=== PATIENT | male | born 1950 | race African-American/Black ===

== ENCOUNTER 2020-03-11 15:33 | Inpatient (IN) ==
[2020-03-11 15:51] VITALS: BMI 26.2
--- NOTE | 2020-03-11 16:05 | DR.GENAD ---
HPI Time Seen Time Seen by Provider: 03/11/20 16:05 PCP Primary Care Physician: JOAQUIN Complaint/Symptoms Chief Complaint Doctors Comments: A 69 y/o male presenting with nausea, onset today. He has vomited once. He had 2 days of abdominal pain but that has resolved today. He had tarry stools yesterday. He had been at [facility] ED yesterday and day before yesterday. He was evaluated and d/c with Zofran and Pepcid. He had associated fever and chills but no SOB or cough. Chief Complaint:: PT. BEGAN HAVING ABDOMINAL PAIN LAST MONDAY. PT. HAS BEEN SEEN IN [facility] THE PAST 2 DAYS. PT. WAS DIAGNOSED WITH STOMACH ULCERS AND ALSO HAD STOOL STUDIES DONE DUE TO HIS STOOL BEING DARK. PT. HAS HAD INCREASED WEAKNESS. PT. C/O NAUSEA. DENIES PAIN. PT. HAS HAD FEVER/CHILLS. PT. WAS TESTED FOR COVID 19 TODAY IN [place]. COVID-19 Coronavirus risk:travel/contact w/high risk person: No Has patient experienced Coronavirus symptoms: Yes Coronavirus symptoms experienced: Fever Nurses notes reviewed Nurses Notes Review: Yes Source History Provided: Patient and Family Member Mode of Arrival Mode of Arrival: Wheelchair Timing Onset of Chief Complaint: 03/05/20 PMH PMH Past Medical History: Yes Past Medical History: Hypertension Past Surgical History: No Surgical History: No History Family History History of Family Medical Conditions: No Social History Does patient currently use any type of tobacco product: No Have you used tobacco products in the last 12 months: No Type of Tobacco Use: None Does any household member use tobacco: No Alcohol Use: None Do you use any recreational Drugs:: No Lives With: Spouse Lives Where: Home Travel Risk Coronavirus risk:travel/contact w/high risk person: No Has patient experienced Coronavirus symptoms: Yes Coronavirus symptoms experienced: Fever Infectious screening In the last 2 months have you had wt loss of >10#?: NO Have you had fever, night sweats or hemotysis?: No Have you traveled outside the country in the last 6 months?: No Isolation: Droplet ROS Review of Systems Constitutional: Fever Eyes: No Symptoms Reported ENTM: No Symptoms Reported Respiratoy: No Symptoms Reported Cardiovascular: No Symptoms Reported Gastrointestinal/Abdominal: Abdominal Pain, Nausea and Vomiting Genitourinary: No Symptoms Reported Neurological: No Symptoms Reported Musculoskeletal: No Symptoms Reported Integumentary: No Symptoms Reported Hematologic/Lymphatic: No Symptoms Reported Endocrine: No Symptoms Reported Psychiatric: No Symptoms Reported PE Vital Signs Vitals: Temperature 97.6 F Pulse Rate 57 Respiratory Rate 21 Blood Pressure 140/72 O2 Sat by Pulse Oximetry 94 General Limitations: No Limitations General Appearance: Alert and Other (He is ill looking) Head Head Exam: Normal Inspection, Atraumatic and Normocephalic Eyes Eye exam: Normal Appearance and EOMI ENT ENT Exam: Normal Exam, Normal Oropharynx, Normal External Ear Exam and Mucous Membranes Moist Neck Neck Exam: Normal Inspection, Full ROM and Trachea Midline Chest Chest Inspection: Normal Inspection and Symmetric Chest Wall Rise Respiratory Respiratory Exam: Normal Lung Sounds Bilat Cardiovascular Cardiovascular Exam: Normal Rhythm, Normal Heart Sounds, +S1 and +S2 Abdominal Exam Abdominal Exam: Normal Inspection, Normal Bowel Sounds and Soft; negative Diste ntion, Tenderness, Guarding, Rebound, Rigidity, Dimnished Bowel Sounds, Hyperactive Bowel Sounds, Hypoactive Bowel Sounds, Organomegaly, Trauma, Incision, Ascites, Mass, Bruit, Pulsatile Mass and Hernia Extremities Extremities Exam: Normal Inspection and Full ROM Back Back Exam: Normal Inspection and Full ROM Neurologic Neurological Exam: Alert and Oriented X3 Psychiatric Psychiatric Exam: Normal Mood and Agitated Skin Skin Exam: Dry and Normal Color COURSE Reevaluation 1st: Improved Education/Counseling Education/Counseling: Patient, Family, Education and Counseling Educated On: Treatment, Diagnosis, Prognosis and Needs for Follow Up ROR Labs Reviewed Laboratory Results Reviewed?: Yes Result Diagrams: 03/11/20 16:36 03/11/20 16:36 Laboratory: WBC 6.0 X10^3/uL (3.6-10.0) 03/11/20 16:36 RBC 6.07 X10^6/uL (4.7-6.0) H 03/11/20 16:36 Hgb 16.1 g/dL (13.5-18.0) 03/11/20 16:36 Hct 48.4 % (42.0-54.0) 03/11/20 16:36 MCV 79.6 fL (80.0-100.0) L 03/11/20 16:36 MCH 26.6 pg (27.0-34.0) L 03/11/20 16:36 MCHC 33.4 g/dL (33.0-35.0) 03/11/20 16:36 RDW 14.1 % (11.6-16.5) 03/11/20 16:36 Plt Count 105 X10^3/uL (150.0-450.0) L 03/11/20 16:36 MPV 9.0 fL (7.4-11.0) 03/11/20 16:36 Neut % (Auto) 78.1 % (42.0-75.0) H 03/11/20 16:36 Lymph % (Auto) 9.7 % (21.0-51.0) L 03/11/20 16:36 [place] % (Auto) 11.6 % (0.0-13.0) 03/11/20 16:36 Eos % (Auto) 0.1 % (0.9-2.9) L 03/11/20 16:36 Baso % (Auto) 0.5 % (0.2-1.0) 03/11/20 16:36 Neut # (Auto) 4.7 x10^3/uL (2.2-4.8) 03/11/20 16:36 Lymph # (Auto) 0.6 X10^3/uL (1.3-2.9) L 03/11/20 16:36 [place] # (Auto) 0.7 x10^3/uL (0.3-0.8) 03/11/20 16:36 Eos # (Auto) 0.0 x10^3/uL (0.0-0.2) 03/11/20 16:36 Baso # (Auto) 0.0 X10^3/uL (0.0-0.1) 03/11/20 16:36 Absolute Nucleated RBC 0.0 /100WBC 03/11/20 16:36 Sodium 131 mmol/L (136-145) L 03/11/20 16:36 Corrected Sodium 131 mmol/L (136-145) L 03/11/20 16:36 Potassium 4.5 mmol/L (3.5-5.1) 03/11/20 16:36 Chloride 96 mmol/L (98-107) L 03/11/20 16:36 Carbon Dioxide 32.0 mmol/L (21-32) 03/11/20 16:36 BUN 19 mg/dL (7-18) H 03/11/20 16:36 Creatinine 1.67 mg/dL (0.70-1.30) H 03/11/20 16:36 Est GFR (MDRD) Af Amer 53 (>60) L 03/11/20 16:36 Est GFR (MDRD) Non-Af 44 (>60) L 03/11/20 16:36 Glucose 116 mg/dL (65-99) H 03/11/20 16:36 Lactic Acid 0.9 mmol/L (0.4-2.0) 03/11/20 17:38 Calcium 8.5 mg/dL (8.5-10.1) 03/11/20 16:36 Corrected Calcium TNP 03/11/20 16:36 Total Bilirubin 0.50 mg/dL (0.2-1.0) 03/11/20 16:36 AST 46 Units/L (15-37) H 03/11/20 16:36 ALT 47 Units/L (12-78) 03/11/20 16:36 Alkaline Phosphatase 76 Units/L (46-116) 03/11/20 16:36 Total Protein 8.5 g/dL (6.4-8.2) H 03/11/20 16:36 Albumin 3.5 g/dL (3.4-5.0) 03/11/20 16:36 Globulin 5.0 g/dL (2.5-4.5) H 03/11/20 16:36 Albumin/Globulin Ratio 0.7 Ratio (1.1-2.1) L 03/11/20 16:36 Opioid Opioid Risk Tool Age (Mehdi box if 16-45): No History of Preadolescent Sexual Abuse: No Total: 0 Total Score Risk Category: Low Risk Copyright: Kj CAREY predicting aberrant behaviors Diagnosis Discharge Problem: Tarry stool Pneumonia Qualifiers: Pneumonia type: due to unspecified organism Laterality: bilateral Lung location: unspecified part of lung Qualified Code(s): J18.9 - Pneumonia, unspecified organism Abdominal pain Qualifiers: Abdominal location: epigastric Qualified Code(s): R10.13 - Epigastric pain Nausea & vomiting Qualifiers: Vomiting type: unspecified Vomiting Intractability: non-intractable Qualified Code(s): R11.2 - Nausea with vomiting, unspecified HTN (hypertension) Qualifiers: Hypertension type: essential hypertension Qualified Code(s): I10 - Essential (primary) hypertension ADDITIONAL NOTES Additional Notes Additional Notes: Name: ISHMAEL VIVAS : 1950 Sex: M Location: ER Order Number(s): [id number] Procedure(s):CHEST, 1 VIEW Ordering Physician: CHELSEA SURESH Primary Care: JOAQUIN SPAULDING V Service Date: 03/11/20 Service Time: 1618 HISTORY SOB STUDY CHEST, 1 VIEW COMPARISON 08/18/2019 FINDINGS The heart is normal. The pulmonary vessels are normal. There are some hazy bibasilar and left upper lobe opacities. No effusion is seen. IMPRESSION Hazy subsegmental bibasilar and left upper lobe opacities which could represent early multisegmental bronchopneumonia. Recommend short-term follow-up. Electronically signed by: GRACE MELLO (Mar 11, 2020 16:57:29) Name: ISHMAEL VIVAS : 1950 Sex: M Location: ER Order Number(s): [id number] Procedure(s):KUB Ordering Physician: CHELSEA SURESH Primary Care: CHELLYJACIELJOAQUIN Alexsander Service Date: 03/11/20 Service Time: 1738 HISTORY abd pain, nausea STUDY KUB x-ray abdomen 1 view COMPARISON None FINDINGS Large lateral osteophytes are seen in the lumbar spine with mild scoliosis. No abnormalities are seen with the bowel gas pattern. No constipation is seen. Likely tiny phleboliths are seen in the pelvis. Mild arthritic changes in the right hip. IMPRESSION No abnormalities are seen with the bowel gas pattern. Electronically signed by: Robert Rodrigues (Mar 11, 2020 18:59:22)
[2020-03-11] MEDS ORDERED: NS 1000 ML 1,000 ML IV ONE (16:18)
[2020-03-11] MEDS ORDERED: ZOFRAN INJ 4 MG VIAL IVP ONE (16:18)
[2020-03-11] MEDS ORDERED: NS 1000 ML 1,000 ML ONE (16:22)
[2020-03-11] MEDS ORDERED: ZOFRAN INJ 4 MG VIAL ONE (16:22)
[2020-03-11 16:52] LABS: BASOPHILS % (AUTO) 0.5 % (0.2-1.0); EOSINOPHILS % (AUTO) 0.1 % (0.9-2.9); HEMATOCRIT 48.4 % (42.0-54.0); HEMOGLOBIN 16.1 g/dL (13.5-18.0); LYMPHOCYTES # (AUTO) 0.6 X10^3/uL (1.3-2.9); LYMPHOCYTES % (AUTO) 9.7 % (21.0-51.0); MEAN CORPUSCULAR HEMOGLOBIN 26.6 pg (27.0-34.0); MEAN CORPUSCULAR HGB CONC 33.4 g/dL (33.0-35.0); MEAN CORPUSCULAR VOLUME 79.6 fL (80.0-100.0); MONOCYTES # (AUTO) 0.7 x10^3/uL (0.3-0.8); MONOCYTES % (AUTO) 11.6 % (0.0-13.0); NEUTROPHILS # (AUTO) 4.7 x10^3/uL (2.2-4.8); NEUTROPHILS % (AUTO) 78.1 % (42.0-75.0); PLATELET COUNT 105 X10^3/uL (150.0-450.0); RED BLOOD COUNT 6.07 X10^6/uL (4.7-6.0); RED CELL DISTRIBUTION WIDTH 14.1 % (11.6-16.5)
--- NOTE | 2020-03-11 16:58 | RAD ---
HISTORYSOBSTUDYCHEST, 1 [id number]/10/2019FINDINGSThe heart is normal. The pulmonary vessels are normal. There are some hazy bibasilar and left upper lobe opacities. No effusion is seen.IMPRESSIONHazy subsegmental bibasilar and left upper lobe opacities which could represent early multisegmental bronchopneumonia. Recommend short-term follow-up.Electronically signed by: GRACE MELLO (Mar 11, 2020 16:57:29)
[2020-03-11 17:04] LABS: ALANINE AMINOTRANSFERASE 47 Units/L (12-78); ALBUMIN 3.5 g/dL (3.4-5.0); ALKALINE PHOSPHATASE 76 Units/L (46-116); ASPARTATE AMINO TRANSFERASE 46 Units/L (15-37); BLOOD UREA NITROGEN 19 mg/dL (7-18); CALCIUM 8.5 mg/dL (8.5-10.1); CHLORIDE 96 mmol/L (98-107); COR NA(FOR HYPERGLY) 131 mmol/L (136-145); CREATININE 1.67 mg/dL (0.70-1.30); SODIUM 131 mmol/L (136-145); TOTAL PROTEIN 8.5 g/dL (6.4-8.2); eGFR NON BLACK RACES 44 (>60)
[2020-03-11] MEDS ORDERED: LEVAQUIN PREMIX IV 500 MG 500 MG/100 ML BAG IV ONE ×2 (17:14→17:37)
--- NOTE | 2020-03-11 19:00 | RAD ---
HISTORYabd pain, nauseaSTUDYKUB x-ray abdomen 1 viewCOMPARISONNoneFINDINGSLarge lateral osteophytes are seen in the lumbar spine with mild scoliosis. No abnormalities are seen with the bowel gas pattern. No constipation is seen. Likely tiny phleboliths are seen in the pelvis. Mild arthritic changes in the right hip.IMPRESSIONNo abnormalities are seen with the bowel gas pattern.Electronically signed by: Robert Rodrigues (Mar 11, 2020 18:59:22)
[2020-03-11] MEDS ORDERED: NS 1/2 1000 ML IV 1,000 ML IV SCH (20:00)
[2020-03-11] MEDS ORDERED: ZOFRAN TAB 4 MG PO PRN (20:17)
[2020-03-11] MEDS ORDERED: VENTOLIN or PROAIR HFA ONE (20:51)
[2020-03-11] MEDS ORDERED: ROBITUSSIN DM PO SCH (21:00)
[2020-03-11] MEDS: VENTOLIN or PROAIR HFA IN PRN (21:00)
[2020-03-11] MEDS ORDERED: NS 1/2 1000 ML IV 1,000 ML IV ONE (21:49)
[2020-03-11] MEDS: NS 1/2 1000 ML IV 1,000 ML IV SCH (21:58)
[2020-03-11] MEDS: MAXIPIME VIAL 1 GRAM 1 G in NS 50 ML IV + SPIKE MINIBAG* 50 ML IV SCH (21:58)
[2020-03-11] MEDS: ZESTRIL TAB 10 MG PO SCH (21:58)
[2020-03-11] MEDS: ROBITUSSIN DM PO SCH (21:58)
[2020-03-11] MEDS ORDERED: MAXIPIME VIAL 1 GRAM 1 G in NS 50 ML IV + SPIKE MINIBAG* 50 ML IV SCH (22:00)
[2020-03-12] MEDS: MAXIPIME VIAL 1 GRAM 1 G in NS 50 ML IV + SPIKE MINIBAG* 50 ML IV SCH ×3 (05:12→21:09)
[2020-03-12 05:15] LABS: BASOPHILS % (AUTO) 0.5 % (0.2-1.0); EOSINOPHILS % (AUTO) 0.1 % (0.9-2.9); HEMATOCRIT 47.8 % (42.0-54.0); HEMOGLOBIN 16.1 g/dL (13.5-18.0); LYMPHOCYTES # (AUTO) 0.6 X10^3/uL (1.3-2.9); LYMPHOCYTES % (AUTO) 10.1 % (21.0-51.0); MEAN CORPUSCULAR HEMOGLOBIN 26.8 pg (27.0-34.0); MEAN CORPUSCULAR HGB CONC 33.8 g/dL (33.0-35.0); MEAN CORPUSCULAR VOLUME 79.4 fL (80.0-100.0); MEAN PLATELET VOLUME 8.7 fL (7.4-11.0); MONOCYTES # (AUTO) 0.5 x10^3/uL (0.3-0.8); MONOCYTES % (AUTO) 9.6 % (0.0-13.0); NEUTROPHILS # (AUTO) 4.4 x10^3/uL (2.2-4.8); NEUTROPHILS % (AUTO) 79.7 % (42.0-75.0); PLATELET COUNT 101 X10^3/uL (150.0-450.0); RED BLOOD COUNT 6.02 X10^6/uL (4.7-6.0); RED CELL DISTRIBUTION WIDTH 13.8 % (11.6-16.5); WHITE BLOOD COUNT 5.5 X10^3/uL (3.6-10.0)
[2020-03-12 05:20] LABS: ABG BASE EXCESS 1.7 mmol/L (-2.0-2.0); ABG HCO3 25.8 mmol/L (22-26)
[2020-03-12 05:33] LABS: ALANINE AMINOTRANSFERASE 42 Units/L (12-78); ALBUMIN 3.1 g/dL (3.4-5.0); ALKALINE PHOSPHATASE 70 Units/L (46-116); ASPARTATE AMINO TRANSFERASE 32 Units/L (15-37); BLOOD UREA NITROGEN 15 mg/dL (7-18); CALCIUM 7.8 mg/dL (8.5-10.1); CARBON DIOXIDE 30.6 mmol/L (21-32); CHLORIDE 97 mmol/L (98-107); COR CA(FOR HYPOALB) 8.5 mg/dL (8.5-10.1); CREATININE 1.43 mg/dL (0.70-1.30); SODIUM 133 mmol/L (136-145); eGFR NON BLACK RACES 52 (>60)
--- NOTE | 2020-03-12 06:04 | RAD ---
HISTORYShortness of breathSTUDYCHEST, 1 UQMIAMBKJQOAGG06/03/2020FINDINGSThe heart is within normal limits in size. The irene are normal. Subtle peripheral infiltrates are present in the right lower lobe and peripherally in the left upper lobe unchanged from the prior examination. The left lung base is now clear. No pleural effusions are identified. Bony thorax is unremarkable.IMPRESSIONPeripheral right lower and left upper lobe infiltrates unchangedLeft lung base now clearElectronically signed by: ISHMAEL WINTERS (Mar 12, 2020 06:03:35)
[2020-03-12] MEDS ORDERED: VSL#3 PO SCH (09:00)
[2020-03-12] MEDS ORDERED: LEVAQUIN PREMIX IV 750 MG 750 MG/150 ML BAG IV SCH (09:00)
[2020-03-12] MEDS: VENTOLIN or PROAIR HFA IN PRN (09:25)
[2020-03-12] MEDS: NS 1/2 1000 ML IV 1,000 ML IV SCH (10:00)
[2020-03-12] MEDS: ROBITUSSIN DM PO SCH ×4 (10:00→20:44)
[2020-03-12] MEDS: ZESTRIL TAB 10 MG PO SCH ×2 (10:00→20:45)
[2020-03-12] MEDS: NORVASC TAB 10 MG PO SCH (10:00)
[2020-03-12] MEDS: LEVAQUIN PREMIX IV 750 MG 750 MG/150 ML BAG IV SCH (10:00)
[2020-03-12] MEDS: PEPCID TAB 20 MG PO SCH (10:00)
[2020-03-12] MEDS: VSL#3 PO SCH (10:00)
[2020-03-12] MEDS ORDERED: NS 1/2 1000 ML IV 1,000 ML IV ONE (10:10)
[2020-03-12] MEDS ORDERED: REMDESIVIR (INVESTIGATIONAL DRUG GS-5734) 200 MG in NS 250 ML IV 250 ML IV ONE (10:15)
[2020-03-12] MEDS: LOVENOX INJ 40 MG SYR SC SCH (13:30)
[2020-03-12] MEDS: TYLENOL 325 MG TAB PO PRN (21:10)
[2020-03-13] MEDS: NS 1/2 1000 ML IV 1,000 ML IV SCH ×3 (00:19→19:08)
[2020-03-13] MEDS ORDERED: NS 1/2 1000 ML IV 1,000 ML IV ONE ×2 (02:19→19:05)
[2020-03-13] MEDS: MAXIPIME VIAL 1 GRAM 1 G in NS 50 ML IV + SPIKE MINIBAG* 50 ML IV SCH ×3 (05:01→21:11)
[2020-03-13] MEDS: TYLENOL 325 MG TAB PO PRN ×2 (05:13→20:04)
[2020-03-13 05:17] LABS: BASOPHILS % (AUTO) 0.4 % (0.2-1.0); HEMATOCRIT 45.4 % (42.0-54.0); HEMOGLOBIN 15.4 g/dL (13.5-18.0); LYMPHOCYTES # (AUTO) 0.4 X10^3/uL (1.3-2.9); LYMPHOCYTES % (AUTO) 6.9 % (21.0-51.0); MEAN CORPUSCULAR VOLUME 79.5 fL (80.0-100.0); MEAN PLATELET VOLUME 8.7 fL (7.4-11.0); MONOCYTES # (AUTO) 0.8 x10^3/uL (0.3-0.8); MONOCYTES % (AUTO) 12.2 % (0.0-13.0); NEUTROPHILS # (AUTO) 5.1 x10^3/uL (2.2-4.8); NEUTROPHILS % (AUTO) 80.5 % (42.0-75.0); PLATELET COUNT 101 X10^3/uL (150.0-450.0); RED BLOOD COUNT 5.71 X10^6/uL (4.7-6.0); RED CELL DISTRIBUTION WIDTH 14.1 % (11.6-16.5); WHITE BLOOD COUNT 6.4 X10^3/uL (3.6-10.0)
[2020-03-13 05:27] LABS: ALANINE AMINOTRANSFERASE 64 Units/L (12-78); ALBUMIN 2.9 g/dL (3.4-5.0); ALKALINE PHOSPHATASE 77 Units/L (46-116); ASPARTATE AMINO TRANSFERASE 53 Units/L (15-37); BLOOD UREA NITROGEN 14 mg/dL (7-18); CALCIUM 8.1 mg/dL (8.5-10.1); CARBON DIOXIDE 27.1 mmol/L (21-32); CHLORIDE 96 mmol/L (98-107); CREATININE 1.51 mg/dL (0.70-1.30); LACTATE DEHYDROGENASE 272 Units/L (85-227); SODIUM 131 mmol/L (136-145); TOTAL PROTEIN 7.7 g/dL (6.4-8.2); eGFR NON BLACK RACES 49 (>60)
[2020-03-13 05:31] LABS: ABG ALLEN TEST POS; ABG BASE EXCESS 1.3 mmol/L (-2.0-2.0); ABG HCO3 24.9 mmol/L (22-26)
[2020-03-13 06:07] LABS: GIANT PLATELET FEW; PLATELET MORPHOLOGY COMMENT ABNORMAL (NORMAL)
--- NOTE | 2020-03-13 06:26 | RAD ---
HISTORYSOBSTUDYCHEST, 1 CDJABLFAMNUIJY56/04/2020FINDINGSThe trachea is midline. The cardiac silhouette is unremarkable. Patchy infiltrates within the right lower lobe, left upper and left lower lobes. No pleural effusion or pneumothorax. The bony thorax is unremarkable.IMPRESSIONPatchy infiltrates within the right lower lobe, left upper and left lower lobes similar to previous 03/12/2020Electronically signed by: Ramon Lechuga (Mar 13, 2020 06:25:11)
[2020-03-13] MEDS: LEVAQUIN PREMIX IV 750 MG 750 MG/150 ML BAG IV SCH (08:37)
[2020-03-13] MEDS: PEPCID TAB 20 MG PO SCH (09:07)
[2020-03-13] MEDS: NORVASC TAB 10 MG PO SCH (09:07)
[2020-03-13] MEDS: ROBITUSSIN DM PO SCH ×4 (09:08→20:04)
[2020-03-13] MEDS: VSL#3 PO SCH (09:08)
[2020-03-13] MEDS: ZESTRIL TAB 10 MG PO SCH ×2 (09:08→20:04)
[2020-03-13] MEDS: LOVENOX INJ 40 MG SYR SC SCH (09:09)
[2020-03-13] MEDS: REMDESIVIR (INVESTIGATIONAL DRUG GS-5734) 100 MG in NS 250 ML IV 250 ML IV SCH (09:10)
[2020-03-13] MEDS ORDERED: ACTEMRA 400 MG in NS 100 ML IV 80 ML IV NR ×2 (10:15→19:00)
[2020-03-13] MEDS ORDERED: CANDIDA ALBICANS SKIN TEST ID ONE (10:24)
[2020-03-13] MEDS ORDERED: SOLU-Medrol 125 MG VIAL IVP ONE (10:24)
[2020-03-13] MEDS ORDERED: APLISOL ID ONE (10:27)
[2020-03-13] MEDS: SOLU-Medrol 40 MG VIAL IVP SCH ×2 (14:05→21:11)
[2020-03-13] MEDS: VENTOLIN or PROAIR HFA IN PRN (17:20)
[2020-03-13] MEDS ORDERED: NS 100 ML IV 100 ML IV ONE (18:39)
[2020-03-14] MEDS ORDERED: NS 1/2 1000 ML IV 1,000 ML IV ONE ×2 (04:34→19:53)
[2020-03-14] MEDS: NS 1/2 1000 ML IV 1,000 ML IV SCH ×2 (04:36→20:39)
[2020-03-14] MEDS: SOLU-Medrol 40 MG VIAL IVP SCH ×3 (05:01→21:02)
[2020-03-14] MEDS: MAXIPIME VIAL 1 GRAM 1 G in NS 50 ML IV + SPIKE MINIBAG* 50 ML IV SCH ×3 (05:02→21:01)
[2020-03-14 05:29] LABS: HEMOGLOBIN 15.8 g/dL (13.5-18.0); LYMPHOCYTES # (AUTO) 0.3 X10^3/uL (1.3-2.9); LYMPHOCYTES % (AUTO) 10.3 % (21.0-51.0); MEAN CORPUSCULAR HEMOGLOBIN 26.9 pg (27.0-34.0); MEAN CORPUSCULAR HGB CONC 33.5 g/dL (33.0-35.0); MEAN CORPUSCULAR VOLUME 80.2 fL (80.0-100.0); MEAN PLATELET VOLUME 9.1 fL (7.4-11.0); MONOCYTES # (AUTO) 0.3 x10^3/uL (0.3-0.8); MONOCYTES % (AUTO) 9.2 % (0.0-13.0); NEUTROPHILS # (AUTO) 2.4 x10^3/uL (2.2-4.8); NEUTROPHILS % (AUTO) 79.5 % (42.0-75.0); PLATELET COUNT 121 X10^3/uL (150.0-450.0); RED BLOOD COUNT 5.87 X10^6/uL (4.7-6.0); WHITE BLOOD COUNT 3.1 X10^3/uL (3.6-10.0)
[2020-03-14 05:36] LABS: ALANINE AMINOTRANSFERASE 75 Units/L (12-78); ALBUMIN 2.8 g/dL (3.4-5.0); ALKALINE PHOSPHATASE 74 Units/L (46-116); ASPARTATE AMINO TRANSFERASE 45 Units/L (15-37); BLOOD UREA NITROGEN 16 mg/dL (7-18); CALCIUM 8.4 mg/dL (8.5-10.1); CHLORIDE 100 mmol/L (98-107); COR CA(FOR HYPOALB) 9.4 mg/dL (8.5-10.1); COR NA(FOR HYPERGLY) 135 mmol/L (136-145); LACTATE DEHYDROGENASE 237 Units/L (85-227); SODIUM 134 mmol/L (136-145); TOTAL PROTEIN 7.6 g/dL (6.4-8.2); eGFR NON BLACK RACES > 60 (>60)
[2020-03-14 05:53] LABS: ABG HCO3 26.5 mmol/L (22-26)
[2020-03-14 05:54] LABS: ABG ALLEN TEST POS
[2020-03-14 06:22] LABS: BAND NEUTROPHILS % 2 % (0-10); PLATELET MORPHOLOGY COMMENT NORMAL (NORMAL)
--- NOTE | 2020-03-14 07:02 | RAD ---
HISTORYSOB hypertensionSTUDYAP yvlunAKPJGDZQJK35/05/2020FINDINGSContinued upper normal heart size with persistent bilateral areas of patchy pulmonary infiltrate, primarily involving the lower lungs. No discrete mass, pulmonary edema, pneumothorax or large pleural effusion is evident. Pulmonary volumes are moderately reduced on the c urrent examination.IMPRESSIONConsidering technical difference, no definite change. Persistent infiltr ates consistent with multifocal pneumonia.Electronically signed by: DRE MAHER (Mar 14, 2020 07:0 1:14)
[2020-03-14] MEDS: VENTOLIN or PROAIR HFA IN PRN ×4 (08:25→20:55)
[2020-03-14] MEDS: LEVAQUIN PREMIX IV 750 MG 750 MG/150 ML BAG IV SCH (09:03)
[2020-03-14] MEDS: NORVASC TAB 10 MG PO SCH (09:04)
[2020-03-14] MEDS: LOVENOX INJ 40 MG SYR SC SCH (09:04)
[2020-03-14] MEDS: VSL#3 PO SCH (09:05)
[2020-03-14] MEDS: PEPCID TAB 20 MG PO SCH (09:05)
[2020-03-14] MEDS: ROBITUSSIN DM PO SCH ×4 (09:05→20:40)
[2020-03-14] MEDS: ZESTRIL TAB 10 MG PO SCH ×2 (09:05→20:40)
[2020-03-14] MEDS: REMDESIVIR (INVESTIGATIONAL DRUG GS-5734) 100 MG in NS 250 ML IV 250 ML IV SCH (10:45)
[2020-03-14] MEDS ORDERED: MAXIPIME VIAL 1 GRAM ONE (19:55)
[2020-03-14] MEDS ORDERED: NS 100 ML IV + SPIKE MINIBAG* 100 ML IV ONE (19:56)
[2020-03-15 05:29] LABS: ALANINE AMINOTRANSFERASE 73 Units/L (12-78); ALBUMIN 2.7 g/dL (3.4-5.0); ALKALINE PHOSPHATASE 68 Units/L (46-116); ASPARTATE AMINO TRANSFERASE 38 Units/L (15-37); BLOOD UREA NITROGEN 21 mg/dL (7-18); CALCIUM 8.2 mg/dL (8.5-10.1); CARBON DIOXIDE 27.9 mmol/L (21-32); CHLORIDE 101 mmol/L (98-107); COR CA(FOR HYPOALB) 9.2 mg/dL (8.5-10.1); COR NA(FOR HYPERGLY) 135 mmol/L (136-145); CREATININE 1.11 mg/dL (0.70-1.30); LACTATE DEHYDROGENASE 255 Units/L (85-227); SODIUM 134 mmol/L (136-145); TOTAL PROTEIN 7.1 g/dL (6.4-8.2); eGFR NON BLACK RACES > 60 (>60)
[2020-03-15 05:31] LABS: BASOPHILS % (AUTO) 0 % (0.2-1.0); EOSINOPHILS % (AUTO) 0.1 % (0.9-2.9); HEMATOCRIT 46.9 % (42.0-54.0); HEMOGLOBIN 15.8 g/dL (13.5-18.0); LYMPHOCYTES # (AUTO) 0.4 X10^3/uL (1.3-2.9); LYMPHOCYTES % (AUTO) 3.9 % (21.0-51.0); MEAN CORPUSCULAR HEMOGLOBIN 26.7 pg (27.0-34.0); MEAN CORPUSCULAR HGB CONC 33.7 g/dL (33.0-35.0); MEAN CORPUSCULAR VOLUME 79.2 fL (80.0-100.0); MONOCYTES # (AUTO) 0.8 x10^3/uL (0.3-0.8); MONOCYTES % (AUTO) 7.5 % (0.0-13.0); NEUTROPHILS # (AUTO) 9.4 x10^3/uL (2.2-4.8); NEUTROPHILS % (AUTO) 88.5 % (42.0-75.0); PLATELET COUNT 153 X10^3/uL (150.0-450.0); RED BLOOD COUNT 5.93 X10^6/uL (4.7-6.0); RED CELL DISTRIBUTION WIDTH 14.1 % (11.6-16.5); WHITE BLOOD COUNT 10.6 X10^3/uL (3.6-10.0)
[2020-03-15 05:48] LABS: GIANT PLATELET FEW
[2020-03-15 05:49] LABS: PLATELET MORPHOLOGY COMMENT ABNORMAL (NORMAL)
[2020-03-15] MEDS: MAXIPIME VIAL 1 GRAM 1 G in NS 50 ML IV + SPIKE MINIBAG* 50 ML IV SCH ×3 (05:58→21:00)
[2020-03-15] MEDS: SOLU-Medrol 40 MG VIAL IVP SCH ×3 (05:58→21:00)
[2020-03-15] MEDS: LEVAQUIN PREMIX IV 750 MG 750 MG/150 ML BAG IV SCH (08:30)
[2020-03-15] MEDS: LOVENOX INJ 40 MG SYR SC SCH (08:51)
[2020-03-15] MEDS: NORVASC TAB 10 MG PO SCH (08:52)
[2020-03-15] MEDS: PEPCID TAB 20 MG PO SCH (08:53)
[2020-03-15] MEDS: ROBITUSSIN DM PO SCH ×3 (08:53→20:50)
[2020-03-15] MEDS: VSL#3 PO SCH (08:54)
[2020-03-15] MEDS: ZESTRIL TAB 10 MG PO SCH ×2 (08:54→20:50)
[2020-03-15] MEDS: VENTOLIN or PROAIR HFA IN PRN ×3 (09:20→16:37)
[2020-03-15] MEDS: REMDESIVIR (INVESTIGATIONAL DRUG GS-5734) 100 MG in NS 250 ML IV 250 ML IV SCH (10:30)
--- NOTE | 2020-03-15 15:03 | RAD ---
HISTORYSOBSTUDYCHEST, 1 VIEWCOMPARISONJune 2011FINDINGSThe trachea is midline. The cardiac silhouette is stable. There stable multifocal infiltrates throughout both lungs unchanged from prior. The bony thorax is unremarkable.IMPRESSIONStable multifocal pneumonia.Electronically signed by: TYSON VEGA (Mar 15, 2020 15:02:06)
[2020-03-15] MEDS: NS 1/2 1000 ML IV 1,000 ML IV SCH ×2 (20:50→22:17)
[2020-03-15] MEDS ORDERED: NS 1/2 1000 ML IV 1,000 ML IV ONE (22:09)
[2020-03-16] MEDS: SOLU-Medrol 40 MG VIAL IVP SCH ×2 (05:28→13:00)
[2020-03-16] MEDS: MAXIPIME VIAL 1 GRAM 1 G in NS 50 ML IV + SPIKE MINIBAG* 50 ML IV SCH ×3 (05:28→21:58)
[2020-03-16 05:49] LABS: BASOPHILS % (AUTO) 0.1 % (0.2-1.0); HEMATOCRIT 45.7 % (42.0-54.0); HEMOGLOBIN 15.2 g/dL (13.5-18.0); LYMPHOCYTES # (AUTO) 0.3 X10^3/uL (1.3-2.9); LYMPHOCYTES % (AUTO) 2.7 % (21.0-51.0); MEAN CORPUSCULAR HEMOGLOBIN 26.3 pg (27.0-34.0); MEAN CORPUSCULAR HGB CONC 33.3 g/dL (33.0-35.0); MEAN CORPUSCULAR VOLUME 78.8 fL (80.0-100.0); MEAN PLATELET VOLUME 9.2 fL (7.4-11.0); MONOCYTES # (AUTO) 0.7 x10^3/uL (0.3-0.8); MONOCYTES % (AUTO) 5.9 % (0.0-13.0); NEUTROPHILS # (AUTO) 10.3 x10^3/uL (2.2-4.8); NEUTROPHILS % (AUTO) 91.3 % (42.0-75.0); PLATELET COUNT 178 X10^3/uL (150.0-450.0); RED CELL DISTRIBUTION WIDTH 14.2 % (11.6-16.5); WHITE BLOOD COUNT 11.3 X10^3/uL (3.6-10.0)
[2020-03-16 06:08] LABS: ALANINE AMINOTRANSFERASE 67 Units/L (12-78); ALBUMIN 2.6 g/dL (3.4-5.0); ALKALINE PHOSPHATASE 65 Units/L (46-116); ASPARTATE AMINO TRANSFERASE 26 Units/L (15-37); BLOOD UREA NITROGEN 20 mg/dL (7-18); CALCIUM 7.9 mg/dL (8.5-10.1); CARBON DIOXIDE 27.8 mmol/L (21-32); CHLORIDE 101 mmol/L (98-107); COR NA(FOR HYPERGLY) 137 mmol/L (136-145); CREATININE 1.21 mg/dL (0.70-1.30); LACTATE DEHYDROGENASE 219 Units/L (85-227); SODIUM 136 mmol/L (136-145); TOTAL PROTEIN 6.9 g/dL (6.4-8.2); eGFR NON BLACK RACES > 60 (>60)
--- NOTE | 2020-03-16 06:20 | RAD ---
HISTORYFollow-up pneumoniaSTUDYCHEST, 1 PSTDYTXTUUEAWV06/07/2020FINDINGSThe heart is within normal limits in size. The irene are normal. Patchy bilateral infiltrates are unchanged. No pleural effusions are identified. The bony thorax is unremarkable.IMPRESSIONNo change patchy bilateral infiltrates suspicious for multifocal pneumoniaElectronically signed by: ISHMAEL WINTERS (Mar 16, 2020 06:19:02)
[2020-03-16 06:22] LABS: BAND NEUTROPHILS % 4 % (0-10); GIANT PLATELET FEW; PLATELET MORPHOLOGY COMMENT ABNORMAL (NORMAL)
[2020-03-16] MEDS: ROBITUSSIN DM PO SCH ×5 (07:29→21:57)
[2020-03-16] MEDS: REMDESIVIR (INVESTIGATIONAL DRUG GS-5734) 100 MG in NS 250 ML IV 250 ML IV SCH (09:09)
[2020-03-16] MEDS: LOVENOX INJ 40 MG SYR SC SCH (09:12)
[2020-03-16] MEDS: LEVAQUIN PREMIX IV 750 MG 750 MG/150 ML BAG IV SCH (09:12)
[2020-03-16] MEDS: PEPCID TAB 20 MG PO SCH (09:13)
[2020-03-16] MEDS: NORVASC TAB 10 MG PO SCH (09:13)
[2020-03-16] MEDS: ZESTRIL TAB 10 MG PO SCH ×2 (09:13→21:58)
[2020-03-16] MEDS: VSL#3 PO SCH (09:14)
[2020-03-16] MEDS: VENTOLIN or PROAIR HFA IN PRN ×2 (12:00→17:28)
[2020-03-16] MEDS ORDERED: NS 1/2 1000 ML IV 1,000 ML IV ONE (12:25)
[2020-03-16] MEDS: NS 1/2 1000 ML IV 1,000 ML IV SCH (12:42)
--- NOTE | 2020-03-16 13:50 | CT ---
HISTORYShortness of breath, pneumonia, COVID-19STUDYCTA chest with contrast for pulmonary embolusTechnique: Axial post-contrast images with coronal and sagittal reformats. Three dimensional maximum intensity projection images were obtained in evaluated. Dose reduction procedures were used with mA/kv adjusted for body size.COMPARISONPlain films same dateFINDINGSThere is no evidence for acute pulmonary thromboembolic disease in the main pulmonary artery, right and left main pulmonary arteries, and lobar branches. Evaluation more peripherally is not possible due to suboptimal bolus timing. Examination of the mediastinum demonstrated no evidence for mediastinal masses, enlarged mediastinal or enlarged hilar adenopathy, significant aortic abnormality or pleural effusions. No chest wall or axillary abnormality is identified. Those portions of the upper abdominal organs visualized were within normal limits. Examination of the lung juares demonstrated bilateral upper lobe peripheral ground-glass infiltrates extending nearly to the pleura. There are some lower lobe peribronchial infiltrates bilaterally associated with bronchiectasis and peribronchial thickening. Findings are consistent with multifocal pneumonia which could be bacterial, viral, or atypical viral in etiology. COVID-19 can have this appearance no areas of segmental or lobar consolidation, significant nodules or masses are identified.IMPRESSIONNo evidence for acute pulmonary thromboembolic disease in the main, right and left main, and lobar pulmonary arteries. Evaluation more peripherally is not possible due to suboptimal bolus timing.Bilateral upper lobe ground-glass peripheral lung infiltrates extending nearly to the pleura with bilateral lower lobe peribronchial infiltrates associated with bronchiectasis and peribronchial thickening. COVID-19 can have this appearance.Electronically signed by: ISHMAEL WINTERS (Mar 16, 2020 13:48:21)
--- NOTE | 2020-03-16 20:57 | DR.H&P ---
H&P - History & Physical for Day of: H&P Date: 03/12/20 - Chief Complaint Chief Complaint: FEVER, SOB, NAUSEA, VOMITING, WEAKNESS, DARK STOOLS - History of Present Illness History of Present Illness: IS A 69 YEAR OLD BLACK MALE, PATIENT OF DR.ORLANDO ORDOÑEZ WHO PRESENTED TO THE ER WITH COMPLAINTS OF FEVER, SHORTNESS OF BREATH, NAUSEA, VOMITING, WEAKNESS, AND ABDOMINAL PAIN. ABDOMINAL PAIN HAS CURRENTLY RESOLVED, BUT HE REPORTS THAT IT HAS BEEN PRESENT FOR THE PAST FOUR DAYS. HE ALSO REPORTS DARK, TARRY STOOLS. HE WAS EVALUATED BY THE [facility] ED ONE DAY PRIOR AND WAS DISCHARED WITH ZOFRAN AND PEPCID, WITH A DIAGNOSIS OF PEPTIC ULCERS. HIS PMH INCLUDES: CAD, HTN, GERD, PUD, GI BLEED. ON ARRIVAL TO THE ER, VITALS WERE 97.6-62-22-94%-119/74. LABS WERE OBTAINED. ABNORMAL LAB VALUES INCLUDE THE FOLLOWING: RBC 6.07, PLT COUNT 105, SODIUM 131, CHLORIDE 96, BUN 19, CREATININE 1.67, GLUCOSE 116, AST 46, LACTATE DEHYDROGENASE 381, CRP 81.90, TOTAL PROTEIN 8.5, GLOBULIN 5.0. AN ABG WAS OBTAINED AND REVEALED: PH 7.440, PC02 38.0, P02 75.0, HC03 25.8, 02 SATURATION 95.0, BASE EXCESS 1.7. COVID-19 POSITIVE. BLOOD CULTURES WERE SET UP. A CHEST XRAY WAS OBTAINED AND REVEALED: Hazy subsegmental bibasilar and left upper lobe opacities which could represent early multisegmental bronchopneumonia. A KUB WAS OBTAINED AND REVEALED: Large lateral osteophytes are seen in the lumbar spine with mild scoliosis. No abnormalities are seen with the bowel gas pattern. No constipation is seen. Likely tiny phleboliths are seen in the pelvis. Mild arthritic changes in the right. HE WAS GIVEN A NORMAL SALINE BOLUS, ZOFRAN 4MG IV X 1 DOSE, AND LEVAQUIN 500MG IV X 1 DOSE. HE WAS ADMITTED FOR FURTHER EVALUATION AND TREATMENT OF COVID-19 AND PNEUMONIA. HE WAS STARTED ON 1/2NSAT 75 ML/HR, LEVAQUIN 750MG IV DAILY, CEFEPINE 1G IV Q8H, LOVENOX 40MG SC DAILY, PRO AIR INHALER 2 PUFFS Q4H PRN, PROBIOTICS 2 CAP PO DAILY, TYLENOL 650MG PO Q4H PRN, AND HOME MEDICATIONS WERE RESUMED. TODAY, WE WILL ADMINISTER ACTEMRA 400MG IV X 1 DOSE, REMDESIVIR 200MG IV X 1, AND THEN START REMDESIVIR 100MG IV DAILY X 4 ADDITIONAL DAYS. OTHERWISE, WE PLAN TO FOLLOW UP WITH AM LABS AND CHEST XRAY AND CONTINUE TO MONITOR. - Past Medical History Past Medical History: Coronary Artery Disease, GERD, Hypertension, [place], PUD Additional Medical History: GI BLEED - Past Surgical History Surgical History: No History - Social History Does patient currently use any type of tobacco product: No Have you used tobacco products in the last 12 months: No Type of Tobacco Use: None Does any household member use tobacco: No Alcohol Use: None Drug Use: None - Medications Home Medications: No Known Drug Allergies Allergy (Verified 03/11/20 15:51) CONTINUE taking the following medications amlodipine 5 mg PO HS 03/11/20 [History] famotidine 40 mg PO DAILY 03/11/20 [History] lisinopril 10 mg PO BID 03/11/20 [History] ondansetron HCl 8 mg PO Q8H PRN 03/11/20 [History] - Review of Systems Constitutional: See HPI, Fever, Chills, Weakness Eyes: No Symptoms Reported ENT: No Symptoms Reported Respiratory: Shortness of Breath Cardiovascular: No Symptoms Reported Gastrointestinal: See HPI, Nausea, Vomiting, Abdominal Pain, Melena Genitourinary: No Symptoms Reported Musculoskeletal: No Symptoms Reported Skin: No Symptoms Reported Neurological: See HPI, Weakness - Physical Exam Vital Signs: Temperature 98.2 F Pulse Rate [Left Brachial] 64 Pulse Rate 77 Respiratory Rate 29 Blood Pressure [Left Arm] 142/76 Blood Pressure 142/93 O2 Sat by Pulse Oximetry 100 Oriented: Normal Eyes: Normal Ear: Normal Nose: Normal Throat: Normal Respiratory: Diminished Throughout Cardiovascular: Normal : Normal Auscultation: Bowel Sounds: Normal Palpation: Normal Tenderness: Normal Skin: Normal Musculoskeletal: Normal Psychiatric: Normal Mood Description: Calm Affect: Normal Speech Pattern: Clear - Assessment/Plan (1) COVID-19 Status: Acute Plan: ADMIT, 1/2NSAT 75 ML/HR, LEVAQUIN 750MG IV DAILY, CEFEPINE 1G IV Q8H, LOVENOX 40MG SC DAILY, PRO AIR INHALER 2 PUFFS Q4H PRN, PROBIOTICS 2 CAP PO DAILY, TYLENOL 650MG PO Q4H PRN, AND HOME MEDICATIONS WERE RESUMED. TODAY, WE WILL ADMINISTER ACTEMRA 400MG IV X 1 DOSE, REMDESIVIR 200MG IV X 1, AND THEN START REMDESIVIR 100MG IV DAILY X 4 ADDITIONAL DAYS. (2) Pneumonia Qualifiers: Pneumonia type: due to unspecified organism Laterality: bilateral Lung location: unspecified part of lung Qualified Code(s): J18.9 - Pneumonia, uns pecified organism Status: Acute (3) Abdominal pain Qualifiers: Abdominal location: epigastric Qualified Code(s): R10.13 - Epigastric pain Status: Acute (4) Nausea & vomiting Qualifiers: Vomiting type: unspecified Vomiting Intractability: non-intractable Qualified Code(s): R11.2 - Nausea with vomiting, unspecified Status: Acute (5) HTN (hypertension) Qualifiers: Hypertension type: essential hypertension Qualified Code(s): I10 - Essential (primary) hypertension Status: Acute - Review H&P Reviewed: Yes Patient was examined?: Yes - Allergies Allergies/Adverse Reactions: Allergies Allergy/AdvReac Type Severity Reaction Status Date / Time No Known Drug Allergies Allergy Verified 03/11/20 15:51
[2020-03-17] MEDS ORDERED: NS 1/2 1000 ML IV 1,000 ML IV ONE (01:08)
[2020-03-17] MEDS: NS 1/2 1000 ML IV 1,000 ML IV SCH ×2 (01:50→02:23)
[2020-03-17 05:30] LABS: BASOPHILS % (AUTO) 0.2 % (0.2-1.0); HEMATOCRIT 43.5 % (42.0-54.0); HEMOGLOBIN 14.7 g/dL (13.5-18.0); LYMPHOCYTES # (AUTO) 0.5 X10^3/uL (1.3-2.9); LYMPHOCYTES % (AUTO) 4.2 % (21.0-51.0); MEAN CORPUSCULAR HEMOGLOBIN 26.6 pg (27.0-34.0); MEAN CORPUSCULAR HGB CONC 33.8 g/dL (33.0-35.0); MEAN CORPUSCULAR VOLUME 78.9 fL (80.0-100.0); MEAN PLATELET VOLUME 9.3 fL (7.4-11.0); MONOCYTES # (AUTO) 1.1 x10^3/uL (0.3-0.8); MONOCYTES % (AUTO) 9.7 % (0.0-13.0); NEUTROPHILS # (AUTO) 9.8 x10^3/uL (2.2-4.8); NEUTROPHILS % (AUTO) 85.9 % (42.0-75.0); PLATELET COUNT 180 X10^3/uL (150.0-450.0); RED BLOOD COUNT 5.52 X10^6/uL (4.7-6.0); RED CELL DISTRIBUTION WIDTH 14.1 % (11.6-16.5); WHITE BLOOD COUNT 11.4 X10^3/uL (3.6-10.0)
[2020-03-17] MEDS: MAXIPIME VIAL 1 GRAM 1 G in NS 50 ML IV + SPIKE MINIBAG* 50 ML IV SCH (05:41)
[2020-03-17 05:46] LABS: ALANINE AMINOTRANSFERASE 60 Units/L (12-78); ALBUMIN 2.5 g/dL (3.4-5.0); ALKALINE PHOSPHATASE 67 Units/L (46-116); ASPARTATE AMINO TRANSFERASE 24 Units/L (15-37); BLOOD UREA NITROGEN 17 mg/dL (7-18); CALCIUM 7.7 mg/dL (8.5-10.1); CHLORIDE 101 mmol/L (98-107); COR CA(FOR HYPOALB) 8.9 mg/dL (8.5-10.1); COR NA(FOR HYPERGLY) 137 mmol/L (136-145); CREATININE 1.13 mg/dL (0.70-1.30); SODIUM 136 mmol/L (136-145); TOTAL PROTEIN 6.4 g/dL (6.4-8.2); eGFR NON BLACK RACES > 60 (>60)
[2020-03-17 06:07] LABS: GIANT PLATELET FEW; PLATELET MORPHOLOGY COMMENT ABNORMAL (NORMAL)
[2020-03-17] MEDS: PEPCID TAB 20 MG PO SCH (08:25)
[2020-03-17] MEDS: LEVAQUIN PREMIX IV 750 MG 750 MG/150 ML BAG IV SCH (08:25)
[2020-03-17] MEDS: ZESTRIL TAB 10 MG PO SCH (08:25)
[2020-03-17] MEDS: NORVASC TAB 10 MG PO SCH (08:25)
[2020-03-17] MEDS: VSL#3 PO SCH (08:26)
[2020-03-17] MEDS: ROBITUSSIN DM PO SCH (08:26)
[2020-03-17] MEDS: LOVENOX INJ 40 MG SYR SC SCH (09:17)
[2020-03-17] MEDS: REMDESIVIR (INVESTIGATIONAL DRUG GS-5734) 100 MG in NS 250 ML IV 250 ML IV SCH (11:13)
[2020-03-17 12:44] VITALS: BP 142/82
== END 2020-03-17 13:00 | disposition home or self-care (01) | DRG 177 ==
LOC: ER 15:46 → ICU 19:40
PROVIDERS: ADMIT Internal Medicine; ATTEND Internal Medicine
DX: J12.89 Other viral pneumonia; R53.1 Weakness; R06.2 Wheezing; R11.2 Nausea with vomiting, unspecified; I10 Essential (primary) hypertension; R50.9 Fever, unspecified; U07.1 COVID-19; R10.13 Epigastric pain; K21.9 Gastro-esophageal reflux disease without esophagitis; R10.84 Generalized abdominal pain; I25.10 Atherosclerotic heart disease of native coronary artery without angina pectoris
CPT/HCPCS: 36415; 36600; 71010; 71045; 71275; 74000; 74018; 80053; 82728; 82803; 83605; 83615; 83880; 85025; 86140; 87040; 87635; 94640; 96365; 96374; 96375; 97110; 97162; 97166; 97530; 99285; A4222; J0692; J1650; J1956; J2405; J2920; J2930; J3262; J3490; J7030; J7050